=== PATIENT | female | born 1960 | race Two or more races ===

== ENCOUNTER 2021-04-16 08:35 | Inpatient (IN) | payer OTHER ==
[2021-04-16] MEDS ORDERED: DEXAMETHASONE SOD PHOSPHATE 10 MG/1 ML VIAL IVPUSH ONE (09:08)
[2021-04-16] MEDS ORDERED: LACTATED RINGERS SOLUTION 1000 ML INFUS.BAG IV ONE (09:08)
[2021-04-16] MEDS ORDERED: DEXAMETHASONE SOD PHOSPHATE 10 MG/1 ML VIAL ONE (09:24)
[2021-04-16] MEDS ORDERED: ACETAMINOPHEN INJECTION 100 ML IVPB ONE (09:33)
[2021-04-16] MEDS ORDERED: ACETAMINOPHEN 1000 MG/100 ML VIAL (NON FORMULARY) IVPB ONE ×2 (09:41→15:53)
[2021-04-16 10:06] LABS: VENOUS BASE EXCESS 1.7 mmol/L (-2-2); VENOUS O2 SATURATION 34.3 % (70-80); VENOUS PCO2 55.7 mmHg (38-52); VENOUS PH 7.332 (7.310-7.410)
[2021-04-16 10:09] LABS: BASO % 0.5 % (0-2.0); HEMATOCRIT 40.9 % (32.4-45.2); HEMOGLOBIN 13.7 GM/dL (10.7-15.3); LYMPH % 26.1 % (8-40); MCH 30.3 pg (25.7-33.7); MCHC 33.5 g/dl (32.0-36.0); MEAN CELL VOLUME 90.6 fl (80-96); MEAN PLT VOLUME 8.7 fl (7.5-11.1); MONO % 8.1 % (3.8-10.2); NEUT % 65.3 % (42.8-82.8); PLATELET COUNT 186 10^3/uL (134-434); RBC 4.52 M/mm3 (3.60-5.2); RDW 14.1 % (11.6-15.6); WHITE BLOOD COUNT 4.3 K/mm3 (4.0-10.0)
[2021-04-16 10:15] LABS: INR 0.97 (0.83-1.09); PROTHROMBIN TIME (PATIENT) 11.9 SEC (9.7-13.0)
[2021-04-16 10:18] LABS: ACTIVATED PTT 27.6 SECONDS (25.2-36.5)
[2021-04-16 10:26] LABS: CHLORIDE 105 mmol/L (98-107); SODIUM 139 mmol/L (136-145)
[2021-04-16 10:28] LABS: CALCIUM 8.4 mg/dL (8.5-10.1)
[2021-04-16 10:29] LABS: ALBUMIN 3.5 g/dl (3.4-5.0); ANION GAP 4 MMOL/L (8-16); BLOOD UREA NITROGEN 10.1 mg/dL (7-18); CO2 30 mmol/L (21-32); GLUCOSE,RANDOM 123 mg/dL (74-106)
[2021-04-16 10:32] LABS: CREATININE 0.8 mg/dL (0.55-1.3); SGOT/AST 44 U/L (15-37); SGPT/ALT 47 U/L (13-61)
[2021-04-16 10:33] LABS: LDH 394 U/L (84-246); TOT PROT 7.3 g/dl (6.4-8.2)
[2021-04-16 10:34] LABS: ALK PHOS 77 U/L (45-117)
[2021-04-16 10:49] LABS: EPI CELLS 13 /uL (0-25.1); HYALINE CASTS 2 /uL (0-3.1); PH,URINE 7.5 (5.0-8.0); URINE APPEARANCE CLOUDY; URINE BACTERIA 48 /uL (0-1359); URINE BILIRUBIN NEGATIVE (NEGATIVE); URINE COLOR YELLOW; URINE GLUCOSE (UA) NEGATIVE (NEGATIVE); URINE KETONE NEGATIVE (NEGATIVE); URINE LEUK ESTERASE NEGATIVE (NEGATIVE); URINE NITRITE NEGATIVE (NEGATIVE); URINE PROTEIN 1+ (NEGATIVE); URINE RBC 39 /uL (0-23.9); URINE WBC 6 /uL (0-25.8)
[2021-04-16 10:51] LABS: BILIRUBIN,DIRECT 0.1 mg/dL (0.0-0.2); BILIRUBIN,TOTAL 0.7 mg/dL (0.2-1)
[2021-04-16] MEDS ORDERED: SODIUM CHLORIDE 1,000 ML IV SCH (12:45)
[2021-04-16 15:49] VITALS: BMI 22.5
[2021-04-17 07:06] LABS: BASO % 0.2 % (0-2.0); HEMATOCRIT 36.7 % (32.4-45.2); HEMOGLOBIN 12.3 GM/dL (10.7-15.3); LYMPH % 28.2 % (8-40); MCH 29.9 pg (25.7-33.7); MCHC 33.4 g/dl (32.0-36.0); MEAN CELL VOLUME 89.6 fl (80-96); MEAN PLT VOLUME 8.3 fl (7.5-11.1); NEUT % 66.6 % (42.8-82.8); PLATELET COUNT 189 10^3/uL (134-434); RBC 4.09 M/mm3 (3.60-5.2); RDW 13.8 % (11.6-15.6); WHITE BLOOD COUNT 7.2 K/mm3 (4.0-10.0)
[2021-04-17 07:36] LABS: CALCIUM 8.3 mg/dL (8.5-10.1)
[2021-04-17 07:37] LABS: ALBUMIN 3.3 g/dl (3.4-5.0); BLOOD UREA NITROGEN 10.2 mg/dL (7-18); MAGNESIUM 2.1 mg/dL (1.8-2.4)
[2021-04-17 07:39] LABS: CREATININE 0.6 mg/dL (0.55-1.3)
[2021-04-17 07:40] LABS: PHOSPHOROUS 2.6 mg/dL (2.5-4.9)
[2021-04-17 07:41] LABS: BILIRUBIN,TOTAL 0.6 mg/dL (0.2-1); TOT PROT 6.7 g/dl (6.4-8.2)
[2021-04-17] MEDS ORDERED: PT OWN MED DRAWER 7, Y5N ONE ×2 (08:55→12:40)
[2021-04-17] MEDS: ZINC SULFATE 220 MG CAPSULE (FP) PO SCH (09:12)
[2021-04-17] MEDS: ASCORBIC ACID 500 MG TABLET (FP) PO SCH (09:12)
[2021-04-17] MEDS: FAMOTIDINE 10 MG TABLET PO SCH (09:13)
[2021-04-17] MEDS: CHOLECALCIFEROL (VIT D3) 1,000 UNIT (25 MCG) TABLET PO SCH (09:13)
[2021-04-17] MEDS: LEVOTHYROXINE NA 75 MCG TABLET (FP) PO SCH (09:13)
[2021-04-17] MEDS: VALSARTAN 80 MG TABLET PO SCH (09:13)
[2021-04-17] MEDS: ENOXAPARIN NA (PORCINE) 40 MG/0.4 ML DISP.SYRIN SQ SCH (09:13)
[2021-04-17] MEDS: DEXAMETHASONE 4 MG TABLET (FP) PO SCH (11:38)
[2021-04-17] MEDS: ACETAMINOPHEN 325 MG TABLET (FP) PO PRN ×2 (11:39→21:46)
[2021-04-17] MEDS: INSULIN SLIDING SCALE (NOVOLOG) 1 VIAL SQ SCH ×3 (11:44→21:48)
[2021-04-17] MEDS ORDERED: REMDESIVIR 200 MG in SODIUM CHLORIDE 250 ML IVPB ONE (13:00)
[2021-04-17] MEDS: BUDESONIDE/FORMETEROL FUMARATE 160/4.5 mcg INHALER IH SCH ×2 (13:47→21:49)
[2021-04-17] MEDS: LIDOCAINE 5% TOPICAL PATCH TP SCH (17:45)
[2021-04-17] MEDS: SERTRALINE HCL 50 MG TABLET (FP) PO SCH (21:42)
[2021-04-17] MEDS: AMITRIPTYLINE HCL 25 MG TABLET PO SCH (21:42)
[2021-04-17] MEDS: LATANOPROST 0.005% OPHTH SOLN 2.5ML BOTTLE OU SCH (21:46)
[2021-04-17] MEDS: ATORVASTATIN CA 10 MG TABLET (FP) PO SCH (21:46)
[2021-04-17] MEDS: DORZOLAMIDE 2% HCL OPHTHALMIC SOLUTION 10 ML BOTTLE OU SCH (21:47)
[2021-04-17] MEDS: TIMOLOL 0.5% OPHTHALMIC SOL 5 ML BOTTLE OU SCH (21:48)
[2021-04-17] MEDS: LIDOCAINE PATCH REMOVAL MC SCH (21:49)
[2021-04-17] MEDS ORDERED: PATIENT'S OWN MEDICATION (NON-FORMULARY) (Dorzolamide/Timolol/Pf [Dorzolamide-Timolol 2%-0 OP SCH (22:00)
[2021-04-18] MEDS: LEVOTHYROXINE NA 75 MCG TABLET (FP) PO SCH (06:19)
[2021-04-18] MEDS: INSULIN SLIDING SCALE (NOVOLOG) 1 VIAL SQ SCH ×4 (06:23→22:24)
[2021-04-18 07:32] LABS: ALBUMIN 3.3 g/dl (3.4-5.0); CALCIUM 8.5 mg/dL (8.5-10.1); MAGNESIUM 2.4 mg/dL (1.8-2.4)
[2021-04-18 07:36] LABS: BILIRUBIN,TOTAL 0.6 mg/dL (0.2-1); CREATININE 0.6 mg/dL (0.55-1.3); PHOSPHOROUS 3.4 mg/dL (2.5-4.9)
[2021-04-18] MEDS: LORATADINE 10 MG TABLET PO SCH (09:09)
[2021-04-18] MEDS: ENOXAPARIN NA (PORCINE) 40 MG/0.4 ML DISP.SYRIN SQ SCH (09:09)
[2021-04-18] MEDS: ASCORBIC ACID 500 MG TABLET (FP) PO SCH (09:09)
[2021-04-18] MEDS: VALSARTAN 80 MG TABLET PO SCH (09:09)
[2021-04-18] MEDS: CHOLECALCIFEROL (VIT D3) 1,000 UNIT (25 MCG) TABLET PO SCH (09:09)
[2021-04-18] MEDS: ZINC SULFATE 220 MG CAPSULE (FP) PO SCH (09:09)
[2021-04-18] MEDS: FAMOTIDINE 10 MG TABLET PO SCH (09:09)
[2021-04-18] MEDS: DEXAMETHASONE 4 MG TABLET (FP) PO SCH (09:10)
[2021-04-18] MEDS: LIDOCAINE 5% TOPICAL PATCH TP SCH (09:10)
[2021-04-18] MEDS: BUDESONIDE/FORMETEROL FUMARATE 160/4.5 mcg INHALER IH SCH ×2 (09:10→22:23)
[2021-04-18] MEDS: REMDESIVIR 100 MG in SODIUM CHLORIDE 250 ML IVPB SCH (14:02)
[2021-04-18] MEDS: ATORVASTATIN CA 10 MG TABLET (FP) PO SCH (21:38)
[2021-04-18] MEDS: SERTRALINE HCL 50 MG TABLET (FP) PO SCH (21:38)
[2021-04-18] MEDS: AMITRIPTYLINE HCL 25 MG TABLET PO SCH (21:39)
[2021-04-18] MEDS: ACETAMINOPHEN 325 MG TABLET (FP) PO PRN (21:39)
[2021-04-18] MEDS ORDERED: guaiFENesin/D-M SUGAR-FREE/ACLHOL-FREE 118 ML BOTTLE PO PRN (21:40)
[2021-04-18] MEDS: LIDOCAINE PATCH REMOVAL MC SCH (22:24)
[2021-04-18] MEDS: TIMOLOL 0.5% OPHTHALMIC SOL 5 ML BOTTLE OU SCH (22:25)
[2021-04-18] MEDS: LATANOPROST 0.005% OPHTH SOLN 2.5ML BOTTLE OU SCH (22:25)
[2021-04-18] MEDS: DORZOLAMIDE 2% HCL OPHTHALMIC SOLUTION 10 ML BOTTLE OU SCH (22:25)
[2021-04-19] MEDS: INSULIN SLIDING SCALE (NOVOLOG) 1 VIAL SQ SCH ×4 (06:08→22:49)
[2021-04-19] MEDS: LEVOTHYROXINE NA 75 MCG TABLET (FP) PO SCH (06:08)
[2021-04-19] MEDS ORDERED: PT OWN MED DRAWER 7, Y5N ONE ×3 (06:46→22:02)
[2021-04-19] MEDS: LORATADINE 10 MG TABLET PO SCH (09:31)
[2021-04-19] MEDS: CHOLECALCIFEROL (VIT D3) 1,000 UNIT (25 MCG) TABLET PO SCH (09:31)
[2021-04-19] MEDS: LIDOCAINE 5% TOPICAL PATCH TP SCH (09:31)
[2021-04-19] MEDS: DEXAMETHASONE 4 MG TABLET (FP) PO SCH (09:31)
[2021-04-19] MEDS: ZINC SULFATE 220 MG CAPSULE (FP) PO SCH (09:31)
[2021-04-19] MEDS: VALSARTAN 80 MG TABLET PO SCH (09:31)
[2021-04-19] MEDS: BUDESONIDE/FORMETEROL FUMARATE 160/4.5 mcg INHALER IH SCH ×2 (09:31→22:19)
[2021-04-19] MEDS: FAMOTIDINE 10 MG TABLET PO SCH (09:31)
[2021-04-19] MEDS: ASCORBIC ACID 500 MG TABLET (FP) PO SCH (09:31)
[2021-04-19] MEDS: ENOXAPARIN NA (PORCINE) 40 MG/0.4 ML DISP.SYRIN SQ SCH (09:31)
[2021-04-19] MEDS: REMDESIVIR 100 MG in SODIUM CHLORIDE 250 ML IVPB SCH (12:36)
[2021-04-19] MEDS: SERTRALINE HCL 50 MG TABLET (FP) PO SCH (22:18)
[2021-04-19] MEDS: AMITRIPTYLINE HCL 25 MG TABLET PO SCH (22:18)
[2021-04-19] MEDS: ATORVASTATIN CA 10 MG TABLET (FP) PO SCH (22:18)
[2021-04-19] MEDS: LIDOCAINE PATCH REMOVAL MC SCH (22:21)
[2021-04-19] MEDS: TIMOLOL 0.5% OPHTHALMIC SOL 5 ML BOTTLE OU SCH (22:50)
[2021-04-19] MEDS: DORZOLAMIDE 2% HCL OPHTHALMIC SOLUTION 10 ML BOTTLE OU SCH (22:50)
[2021-04-19] MEDS: LATANOPROST 0.005% OPHTH SOLN 2.5ML BOTTLE OU SCH (22:50)
[2021-04-20] MEDS: INSULIN SLIDING SCALE (NOVOLOG) 1 VIAL SQ SCH ×2 (06:47→12:11)
[2021-04-20] MEDS: LEVOTHYROXINE NA 75 MCG TABLET (FP) PO SCH (06:47)
[2021-04-20] MEDS: ASCORBIC ACID 500 MG TABLET (FP) PO SCH (09:09)
[2021-04-20] MEDS: DEXAMETHASONE 4 MG TABLET (FP) PO SCH (09:10)
[2021-04-20] MEDS: ZINC SULFATE 220 MG CAPSULE (FP) PO SCH (09:10)
[2021-04-20] MEDS: LORATADINE 10 MG TABLET PO SCH (09:10)
[2021-04-20] MEDS: ENOXAPARIN NA (PORCINE) 40 MG/0.4 ML DISP.SYRIN SQ SCH (09:10)
[2021-04-20] MEDS: LIDOCAINE 5% TOPICAL PATCH TP SCH (09:10)
[2021-04-20] MEDS: CHOLECALCIFEROL (VIT D3) 1,000 UNIT (25 MCG) TABLET PO SCH (09:10)
[2021-04-20] MEDS: VALSARTAN 80 MG TABLET PO SCH (09:11)
[2021-04-20] MEDS: BUDESONIDE/FORMETEROL FUMARATE 160/4.5 mcg INHALER IH SCH (09:11)
[2021-04-20] MEDS: FAMOTIDINE 10 MG TABLET PO SCH (09:11)
[2021-04-20 12:29] VITALS: BP 132/71; PULSE 62; TEMP 97.8
== END 2021-04-20 15:36 | disposition home or self-care (01) | DRG 137 ==
LOC: JER 08:35 → JERBED 10:53 → J4S 13:44
PROVIDERS: ATTEND Internal Medicine
PROC: XW033E5 Introduction of Remdesivir Anti-infective into Peripheral Vein, Percutaneous Approach, New Technology Group 5 (ICD-10-PCS; principal; 2021-04-16)
DX: U07.1 COVID-19 (principal); J12.82 Pneumonia due to coronavirus disease 2019; I10 Essential (primary) hypertension; E03.9 Hypothyroidism, unspecified; E11.9 Type 2 diabetes mellitus without complications; E78.5 Hyperlipidemia, unspecified; F32.9 Major depressive disorder, single episode, unspecified
CPT/HCPCS: 36415; 70450-TC; 71045-TC-FY; 71250-TC; 72125-TC; 80053; 81003; 82248; 82550; 82728; 82803; 82962; 83036; 83605; 83615; 83735; 84100; 84439; 84443; 84484; 85025; 85379; 85610; 85651; 85730; 86140; 86769; 87040; 87086; 87804; 93005; 93010; 93880-TC; 94761; 99285-25; C9399; C9803; J0131; J1100; U0003; U0005

== ENCOUNTER 2023-04-18 08:15 | Emergency (ER) | payer OTHER ==
[2023-04-18 08:49] VITALS: BP 120/60; PULSE 81; RESP 17; TEMP 98.6; BMI 26.0
[2023-04-18] MEDS ORDERED: DIPHTH,PERTUSS(ACELL),TET 0.5 ML DISP.SYRIN IM ONE ×2 (09:04→09:08)
[2023-04-18] MEDS ORDERED: BACITRACIN ZINC 15 GM TUBE TOPICAL OINTMENT ONE (09:39)
[2023-04-18] MEDS ORDERED: BACITRACIN ZINC 15 GM TUBE TOPICAL OINTMENT TP SCH (10:00)
== END 2023-04-18 09:40 | disposition home or self-care (01) ==
LOC: JERFT 08:15
PROC: 3E0234Z Introduction of Serum, Toxoid and Vaccine into Muscle, Percutaneous Approach (ICD-10-PCS; principal; 2023-04-18)
DX: L03.012 Cellulitis of left finger (principal)
CPT/HCPCS: 73140-TC-RT-FY; 90471; 90715; 99283-25

== ENCOUNTER 2023-05-04 13:27 | Emergency (ER) | payer OTHER ==
[2023-05-04 13:34] VITALS: BMI 26.4
[2023-05-04] MEDS ORDERED: SULFAMETHOXAZOLE/TRIMETHOPRIM 800MG/160MG D.S. TABLET PO ONE (15:36)
[2023-05-04] MEDS ORDERED: SULFAMETHOXAZOLE/TRIMETHOPRIM 800MG/160MG D.S. TABLET ONE (15:37)
[2023-05-04 15:54] VITALS: BP 133/72; PULSE 78; RESP 19; TEMP 97.9
== END 2023-05-04 15:45 | disposition home or self-care (01) ==
LOC: JER 13:27 → JERFT 13:27
DX: M79.644 Pain in right finger(s) (principal); R22.31 Localized swelling, mass and lump, right upper limb; L03.011 Cellulitis of right finger
CPT/HCPCS: 99283-25